=== PATIENT | female | born 1950 | race Caucasian/White ===

== ENCOUNTER 2017-02-02 19:11 | Observation (INO) | payer MEDICARE ==
--- NOTE | ~2017-02-02 | HP ---
History And Physical [place] [address] [facility] [place]. [address] NAME: DIANE GALLARDO : 46 STATUS : ADM Flavio PAT#: [id number] AGE: 66 ADM/REG DATE : 02/02/17 MR#: [id number] REPORT SERV DATE: 02/03/17 DICTATED BY: FRANCIA COVARRUBIAS DATE: 02/02/17 REPORT STATUS : Draft TRANSCRIBED BY: MODL DATE: 02/02/17 DATE OF ADMISSION: 02/02/2017 IDENTIFYING DATA: A 66-year-old white female who has no PCP. CHIEF COMPLAINT: Chest pain, nausea, vomiting, and diarrhea. HISTORY OF PRESENT ILLNESS: This history of present illness is obtained by talking directly with the patient as well as reviewing [employer] and meevl and reviewing the records that came with her from [facility] where she went to their emergency room today. She states that a [facility] nurse practitioner came by to check on her today and found her blood pressure elevated at 150/130 and sent her to the emergency room. Initial blood pressure reading that I saw at their facility was 181/112. Subsequently 159/105, 155/88, 152/94, 146/88. Heart rate was initially 116 and came down to as low as 103. They gave her aspirin and they put nitroglycerin paste on her and gave her a Percocet tablet. The patient's notes from [facility] ER indicates she was there for complaints of chest pain, nausea, vomiting, and diarrhea. When I asked her about that she stated "oh yeah" I started having some chest pain yesterday, it has been constant, it is left anterior chest, heavy, no radiation, does not change with motion, does not change with breathing. She also stated yesterday that she had nausea, vomiting, and diarrhea. She states she vomited maybe 20 times, and she had diarrhea maybe 8 or 10 times. She states there was no red or black color in any of the emesis or diarrhea. When I walked into the room this evening to meet her, she was eating a sandwich as fast as she could stating that she was starve. The patient has had prior hospitalizations here for evaluations for abdominal pain, nausea, vomiting, diarrhea, as well as evaluations here for complaints of chest pain. She had a heart catheterization here in 05/2012 which showed minimal coronary disease, otherwise, unremarkable findings. On review of systems, she states she falls often. She cannot tell me why. She does not pass out, just loses her balance. She states she only gets headaches maybe once a month now, she states she has gained about 20 pounds in the last year. She has insomnia for a number of months, just can't fall asleep. She uses [id number] Advil PM even though she states Benadryl makes her feel irritable and restless. She denies fever, sore throat, cough, abdominal pain, dysuria, urinary hesitancy, peripheral edema, rash. PAST MEDICAL HISTORY: She claims intolerance or allergy to Benadryl, Toradol, tramadol, and Demerol. PAST MEDICAL HISTORY: She denies any history of diabetes, asthma, peptic ulcer, biliary tract disease, liver disease, thyroid disease, cancer, or sleep apnea. Previously, she had migraines. She does have a history of hypertension, but not on any History And Physical [address] [address] NAME: DIANE GALLARDO : 46 STATUS : ADM Flavio PAT#: [id number] AGE: 66 ADM/REG DATE : 02/02/17 MR#: [id number] REPORT SERV DATE: 02/03/17 DICTATED BY: FRANCIA COVARRUBIAS DATE: 02/02/17 REPORT STATUS : Draft TRANSCRIBED BY: CHARI DATE: 02/02/17 medications. She has a chart history of rheumatoid arthritis. She has a history of constipation, predominant irritable bowel, and a previous episode of diverticulitis. She has had a history of spine compression fractures. She has had known anxiety and depression. She has had previous DVT reportedly after an angiogram in the 1980s. 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 HOME MEDICATIONS: No prescriptions, just aspirin 81 mg daily. SURGICAL HISTORY: Hemorrhoidectomy and TAHBSO. SOCIAL HISTORY: She smokes about a half a pack of cigarettes per day. She denies alcohol use. 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 She states that she has no assistive device when she walks. FAMILY HISTORY: Mother had dementia. Father had cancer, he was in his 90s. Half brother had alcohol problems and a stroke. Sister with back pain. DIAGNOSTIC DATA: EKG from [facility] done today at 1409 hours reveals sinus tachycardia at 114 beats per minute. It is otherwise unremarkable per my interpretation. White count 8.4, hemoglobin 12.8, MCV is 75.3, and platelets 301,000. Protime 12.4, INR 0.9, PTT 26. Magnesium 2.1. Troponin less than 0.3. D-dimer 0.31. Lipase 36. Sodium 133, potassium 3.7, chloride 97, CO2 is 18, BUN 14, creatinine 1.04, glucose 168. The rest of the CMP unremarkable. Chest x-ray report from their facility, no active disease. PHYSICAL EXAMINATION: VITAL SIGNS: Temp 97.1, pulse 102, respirations 18, blood pressure 154/96, and O2 saturation is 97% on room air. GENERAL: A well-developed female, who appears older than her stated age but in no acute distress. She is rapidly eating a sandwich snack pack that was given to her here at the hospital or by the hospital at the other facility. HEENT: Head is atraumatic. Pupils are equal, round, and reactive to light. Extraocular motions are intact. No scleral icterus noted. Ears, externally unremarkable. No inflammatory changes noted. Normal hearing bilaterally. Nose, noninflamed externally. Septum midline. Nares patent. Mouth, moist. Good gag. No redness of the throat, gums, or lips. She has no teeth at this time. She states her denture is broke. NECK: Supple. No lymph node or thyroid enlargement. The carotids have good pulses. No bruits. LUNGS: Prolonged expiratory phase. Rare wheeze. Good air flow. Normal respiratory effort. HEART: Regular rate and rhythm without murmur, gallop, click, or rub, although her heart rate is 104. ABDOMEN: Bowel sounds positive. Soft, nondistended, nontender. No masses. No organomegaly. CHEST: Chest wall is tender to light palpation of the left anterior chest wall. Literally, just resting my hand on it she states reproduces her pain. History And Physical [facility] [address] [place]. [address] NAME: DIANE GALLARDO : 46 STATUS : ADM Flavio PAT#: [id number] AGE: 66 ADM/REG DATE : 02/02/17 MR#: [id number] REPORT SERV DATE: 02/03/17 DICTATED BY: FRANCIA COVARRUBIAS DATE: 02/02/17 REPORT STATUS : Draft TRANSCRIBED BY: MODL DATE: 02/02/17 EXTREMITIES: Warm, good pulses. No clubbing, no cyanosis, no edema. No actively inflamed skin or joints. NEUROLOGIC: Alert, oriented, and cooperative with grossly normal mentation and speech as well as motor and cranial nerves 2 through 12. No Babinski or clonus noted. ASSESSMENT: 1. Very atypical chest pain. It could be related to hypertension or atypical coronary disease or gastroesophageal reflux or vomiting or chest wall pain. 2. Episodes yesterday of nausea, vomiting, and diarrhea that seemed to have resolved now. She has had some of these in the past year. 3. Metabolic acidosis that was mild and likely related to her recent diarrhea and emesis losses. 4. Chronic anxiety with insomnia and previous depression. 5. History of chronic unsteady gait. 6. Random blood sugar of 168 suggests the possibility of impaired glucose tolerance or diabetes. PLAN: 1. Observation on telemetry. 2. Rule out SC, and if they are negative, then do a stress test. We will get an echocardiogram as well. 3. Physical Therapy to assess her balance and gait. We will check her stools if she has diarrhea. We are looking for leukocytes culture and C. diff. I will also follow up her bicarbonate. We will give her some IV fluids. Check an A1c. We will check her iron level and TSH. We will initiate blood pressure therapy with metoprolol at this time. Follow up her blood pressures and heart rate. RSG/MODL Francia Covarrubias M.D. / [id number] CC: Manju Etienne MD
--- NOTE | ~2017-02-02 | DS ---
Discharge Summary [facility] [address] [place]. [address] NAME: DIANE GALLARDO : 46 STATUS : DIS Flavio PAT#: [id number] AGE: 66 ADM/REG DATE : 02/02/17 MR#: [id number] REPORT SERV DATE: 02/04/17 DICTATED BY: ONIEL COX DATE: 02/03/17 REPORT STATUS : Draft TRANSCRIBED BY: CHARI DATE: 02/03/17 ADMISSION DATE: 02/02/2017 DISCHARGE DATE: 02/03/2017 PROCEDURES DONE: 1. On 02/03/2017, 2D echo: Normal LV size with preserved EF 55-60%. Mild diastolic dysfunction. Normal RV size and systolic function. No significant valve disease. 2. On 02/03/2017, nuclear myocardial perfusion study: Imaging demonstrated no ischemia. Post infusion left ventricular ejection fraction 63%. Overall low risk vasodilator stress test. REASON FOR ADMISSION: Chest pain, nausea, vomiting, and diarrhea. HISTORY OF HOSPITAL STAY: A 66-year-old white female with no significant past medical history presenting with chest pain, nausea, vomiting, and diarrhea. The patient was initially seen at [facility] where she was evaluated in the ER. It was noted that the patient had an elevated blood pressure of 181/112. The patient was then transferred to [facility] for further evaluation and treatment regarding the patient's very atypical chest pain. Fortunately for the patient, the nausea, vomiting, and diarrhea had resolved prior to being admitted. But more importantly, the patient's chest pain was further evaluated. The patient underwent nuclear medicine stress test which was negative. No reversible ischemia noted. In addition, the patient's left ventricular ejection fraction was 63%. In addition, the 2D echo did not show any abnormality. At this time, the patient was complaining of still chest pain. But on palpation, the patient was feeling tenderness along the pectoralis major. As a matter of fact, the patient was so tender that I was not able to palpate deeply other than very lightly along the chest wall. Given these findings, the patient has been advised to use capsaicin cream/Icy Hot on the area to relieve some of the pain. In addition, the patient has also been advised to quit smoking. DISPOSITION: The patient feels fine, no complaint. ACTIVITY: As tolerated. DIET: Low fat. DISCHARGE INSTRUCTIONS: The patient to follow with primary care physician within one to two weeks' time. DISCHARGE MEDICATIONS: 1. Aspirin 81 mg p.o. daily. 2. Metoprolol 12.5 mg p.o. b.i.d., dispensed 60. DISCHARGE DIAGNOSES: 1. Chest pain, atypical secondary to musculoskeletal. 2. Hypertension. 3. Tobacco abuse. Discharge Summary [address] [address] NAME: DIANE GALLARDO : 46 STATUS : DIS Flavio PAT#: [id number] AGE: 66 ADM/REG DATE : 02/02/17 MR#: [id number] REPORT SERV DATE: 02/04/17 DICTATED BY: ONIEL COX DATE: 02/03/17 REPORT STATUS : Draft TRANSCRIBED BY: CHARI DATE: 02/03/17 KADE/CHARI Oniel Cox MD / [id number] CC: Oniel Cox MD
[~2017-02-02 19:11] MED LIST: *DENIES; AMB10 PO; ASAB PO; BAC PO; DENIES HOME MEDS; KLONO1 PO; KLONO2 PO
[2017-02-02 23:37] LABS: BUN (BLOOD UREA NITROGEN) 15 MG/DL (6-23); CALCIUM, SERUM 8.8 MG/DL (8.5-10.4); CHLORIDE, SERUM 108 MMOL/L (96-112); CO2 (CARBON DIOXIDE) 25 MMOL/L (24-34); CREATININE 0.98 MG/DL (0.55-1.02); GFR AFRICAN AMERICAN 69 ML/MIN (>=60); GFR NON AFRICAN AMERICAN 59 ML/MIN (>=60); GLUCOSE, SERUM 121 MG/DL (60-99); POTASSIUM, SERUM 3.2 MMOL/L (3.5-5.3); SODIUM, SERUM 140 MMOL/L (135-148); TROPONIN I <0.02 NG/ML (<0.05)
[2017-02-02 23:43] LABS: ULTRASENSITIVE TSH 3.13 MCIU/ML (0.358-3.740)
[2017-02-03 05:44] LABS: BASOPHILS 0.8 %; BASOPHILS ABSOLUTE 0.09 10/3/uL (0.0-0.16); EOSINOPHILS 2.9 %; EOSINOPHILS ABSOLUTE 0.32 10/3/uL (0.0-0.53); HEMATOCRIT 34.9 % (36.0-48.0); HEMOGLOBIN 11.5 g/dL (12.0-16.0); IMMATURE GRANULOCYTES 0.2 %; IMMATURE GRANULOCYTES ABSOLUTE 0.02 10/3/uL (0.0-0.11); LYMPHOCYTES 24.1 %; LYMPHOCYTES ABSOLUTE 2.65 10/3/uL (0.67-4.30); MEAN CORPUSCULAR HEMOGLOB 24.6 pg (26.0-34.0); MEAN CORPUSCULAR VOLUME 74.7 fL (80-100); MEAN PLATELET VOLUME 10.2 fL (9.2-13.0); MONOCYTES 8.9 %; MONOCYTES ABSOLUTE 0.98 10/3/uL (0.21-1.20); NEUTROPHILS 63.1 %; NEUTROPHILS ABSOLUTE 6.92 10/3/uL (2.02-8.40); PLATELET COUNT 426 10/3/uL (150-400); RBC DISTRIBUTION WIDTH 15.1 % (12.0-16.0); RED CELL COUNT 4.67 10/6/uL (4.0-5.6)
[2017-02-03 05:46] LABS: MANUAL DIFF NO %
[2017-02-03 05:48] LABS: CALCIUM, SERUM 8.7 MG/DL (8.5-10.4); CHLORIDE, SERUM 109 MMOL/L (96-112); CO2 (CARBON DIOXIDE) 24 MMOL/L (24-34); CREATININE 0.89 MG/DL (0.55-1.02); GFR AFRICAN AMERICAN 77 ML/MIN (>=60); GFR NON AFRICAN AMERICAN 67 ML/MIN (>=60); GLUCOSE, SERUM 101 MG/DL (60-99); SODIUM, SERUM 140 MMOL/L (135-148)
[2017-02-03 05:50] LABS: BUN (BLOOD UREA NITROGEN) 19 MG/DL (6-23); POTASSIUM, SERUM 4.2 MMOL/L (3.5-5.3)
[2017-02-03] MEDS ORDERED: LOP25 PO (18:53)
[2017-02-03] MEDS ORDERED: *DENIES (19:00)
== END 2017-02-03 19:47 | disposition home or self-care (01) ==
LOC: 6NO 19:11
PROVIDERS: Hospitalist
DX: R07.89 Other chest pain (principal); I10 Essential (primary) hypertension; F41.9 Anxiety disorder, unspecified; M06.9 Rheumatoid arthritis, unspecified; Z79.899 Other long term (current) drug therapy; Z79.82 Long term (current) use of aspirin
CPT/HCPCS: 78452; 80048; 82728; 83036; 83540; 83550; 83735; 84443; 84484; 85025; 93005; 93017; 93306; 96372; 96374; A9270-GY; A9502; G0378; J0280; J2785; J3480